=== PATIENT | male | born 1990 | race Two or more races ===

== ENCOUNTER 2019-05-10 07:37 | Outpatient (CLI) | payer OTHER | END 2019-05-10 07:46 | disposition home or self-care (01) | LOC: LAB 07:37 | DX: Z00.00 Encounter for general adult medical examination without abnormal findings (principal); E55.9 Vitamin D deficiency, unspecified; E78.49 Other hyperlipidemia; R42 Dizziness and giddiness; R22.1 Localized swelling, mass and lump, neck ==

== ENCOUNTER → 2021-04-16 | Outpatient (CLI) | payer OTHER ==
[~2021-04-16] MED LIST: DICLOFENAC SODI75 MG PO
== END | disposition home or self-care (01) ==
LOC: LAB 14:23
PROVIDERS: ATTEND Emergency Medicine Pediatric Emergency Medicine
DX: Z03.818 Encounter for observation for suspected exposure to other biological agents ruled out (principal)

== ENCOUNTER → 2021-05-20 | Emergency (ER) | payer OTHER ==
[~2021-05-20] VITALS: Ht 172.7 cm; Wt 86.2 kg
== END | disposition home or self-care (01) ==
LOC: ER 15:51
DX: M79.18 Myalgia, other site (principal)

== ENCOUNTER 2022-02-01 11:47 | Outpatient (CLI) | payer OTHER | END 2022-02-01 11:49 | disposition home or self-care (01) | LOC: LAB 11:47 | PROVIDERS: ATTEND Preventive Medicine Occupational Medicine | DX: U07.1 COVID-19 (principal) ==

== ENCOUNTER 2022-03-15 09:39 | Emergency (ER) | payer OTHER ==
[~2022-03-15] VITALS: Ht 172.7 cm; Wt 90.7 kg
[2022-03-15] MEDS ORDERED: AMOXICILLIN500 M1 PO (13:33)
== END 2022-03-15 14:49 | disposition home or self-care (01) ==
LOC: ER 09:39
DX: R09.81 Nasal congestion (principal); Z91.018 Allergy to other foods; Z91.013 Allergy to seafood

== ENCOUNTER 2022-05-27 08:00 | Outpatient (CLI) | payer OTHER ==
[~2022-05-27 08:00] MED LIST changes: +AMOXICILLIN500 M1 PO
== END 2022-05-27 08:05 | disposition home or self-care (01) ==
LOC: PPH VACUNA 08:00
PROVIDERS: ATTEND Emergency Medicine Pediatric Emergency Medicine
DX: Z23 Encounter for immunization (principal)

== ENCOUNTER 2022-11-04 13:36 | Emergency (ER) | payer OTHER ==
[~2022-11-04] VITALS: Ht 172.7 cm; Wt 76.7 kg
== END 2022-11-04 18:02 | disposition home or self-care (01) ==
LOC: ER 13:36
DX: S80.01XA Contusion of right knee, initial encounter (principal); X58.XXXA Exposure to other specified factors, initial encounter; Y93.89 Activity, other specified; Y92.234 Operating room of hospital as the place of occurrence of the external cause; Y99.8 Other external cause status; Z91.018 Allergy to other foods; Z91.013 Allergy to seafood

== ENCOUNTER 2023-12-14 08:15 | Outpatient (CLI) | payer OTHER | END 2023-12-14 08:25 | disposition home or self-care (01) | LOC: PPH VACUNA 08:15 | PROVIDERS: ATTEND Emergency Medicine Pediatric Emergency Medicine | DX: Z23 Encounter for immunization (principal) | CPT/HCPCS: 90653; G0008 ==